=== PATIENT | male | born 1955 ===

== ENCOUNTER 2024-10-01 08:32 | Day surgery (SDC) | payer OTHER ==
[~2024-10-01] VITALS: Ht 182.9 cm; Wt 99.4 kg
[2024-10-01] VITALS (19 sets, daily range): BP systolic 111–166; BP diastolic 5–90
[~2024-10-01 08:32] MED LIST: ALBU90OI INH; AMLO5 PO; CLOP75 PO; COREG12.5 M1 PO; CeFAZolin Sodium 2,000 MG in NS 100 ML IV SCH; EPLE25 PO; Lactated Ringer's 1,000 ML IV SCH; ZOCOR PO; ZOCOR20 MG PO
[2024-10-01] MEDS ORDERED: propofoL 20 ML IV ONE (08:53)
[2024-10-01] MEDS ORDERED: FentaNYL Citrate 50 MCG/ML 2 ML Injection ONE ×2 (08:54→14:33)
[2024-10-01] MEDS ORDERED: Rocuronium Bromide 10 MG/ML 5ML Injection IV ONE ×2 (08:55→12:14)
[2024-10-01] MEDS ORDERED: CeFAZolin Sodium 2,000 MG VIAL ONE (09:34)
--- NOTE | 2024-10-01 09:44 | NUR ---
History, Chart, Medications and Allergies reviewed before start of procedure. Patient confirms NPO status and agrees with scheduled surgery. accompanied patient in Day Surgery.
[2024-10-01] MEDS ORDERED: Bupivacaine 0.5% HCl 5 MG/ML 30MLVIAL ONE (11:35)
[2024-10-01] MEDS ORDERED: Lidocaine HCl 4% 5 ML SDA ONE (11:55)
[2024-10-01] MEDS ORDERED: Dexamethasone Sod Phos 10 MG/ML 1ML VIAL ONE (12:14)
[2024-10-01] MEDS ORDERED: Ondansetron HCl 2 MG / ML 2ML Vial ONE ×2 (12:14→15:49)
[2024-10-01] MEDS ORDERED: Sugammadex Sodium 200 MG/2ML SDV (100 MG/ML) ONE (12:20)
[2024-10-01] MEDS ORDERED: ePHEDrine Sulfate 50 MG/ML 1ML Injection ONE (12:52)
[2024-10-01] MEDS ORDERED: OxyCODONE 5 mg/Acetamin 325 mg TABLET PO PRN (15:00)
--- NOTE | 2024-10-01 16:24 | NUR ---
Discharge instructions reviewed with patient. Patient verbalizes understanding. Copy given to patient to take home. Dressing x5, 1 exofen site with scant amount of drainage, placed 2x2 with todd, with instruction to keep and eye on and call dr if bleeding incrases. Pt to restart plavix in 72hrs. Patient States Post-Procedure ride home has been arranged. Discharged via wheelchair to private car for ride home.
== END 2024-10-01 16:30 | disposition home or self-care (01) ==
LOC: ORSCMMR 08:32
PROVIDERS: Surgery
PROC: 0WUF4JZ Supplement Abdominal Wall with Synthetic Substitute, Percutaneous Endoscopic Approach (ICD-10-PCS; principal; 2024-10-01 10:00)
PROC: 0YU64JZ Supplement Left Inguinal Region with Synthetic Substitute, Percutaneous Endoscopic Approach (ICD-10-PCS; principal; 2024-10-01 10:00)
PROC: 3E0T3BZ Introduction of Anesthetic Agent into Peripheral Nerves and Plexi, Percutaneous Approach (ICD-10-PCS; principal; 2024-10-01 10:00)
PROC: 0YU84JZ Supplement Left Femoral Region with Synthetic Substitute, Percutaneous Endoscopic Approach (ICD-10-PCS; principal; 2024-10-01 10:00)
PROC: 8E0W4CZ Robotic Assisted Procedure of Trunk Region, Percutaneous Endoscopic Approach (ICD-10-PCS; principal; 2024-10-01 10:00)
DX: K40.30 Unilateral inguinal hernia, with obstruction, without gangrene, not specified as recurrent (principal); K42.0 Umbilical hernia with obstruction, without gangrene; K41.30 Unilateral femoral hernia, with obstruction, without gangrene, not specified as recurrent; E78.5 Hyperlipidemia, unspecified; I10 Essential (primary) hypertension; I25.10 Atherosclerotic heart disease of native coronary artery without angina pectoris; Z87.891 Personal history of nicotine dependence; N40.0 Benign prostatic hyperplasia without lower urinary tract symptoms; Z86.73 Personal history of transient ischemic attack (TIA), and cerebral infarction without residual deficits; Z79.899 Other long term (current) drug therapy; Z79.02 Long term (current) use of antithrombotics/antiplatelets
CPT/HCPCS: 88304; A9270; C1781; J0690; J1100; J2003; J2405; J2704; J3010; J7120